=== PATIENT | female | born 1990 | race Caucasian/White ===

== ENCOUNTER 2016-12-27 22:51 | Emergency (ER) | payer MEDICAID ==
[2016-12-27 23:06] VITALS: RESP 16; TEMP 99.3; BMI 41.3
[2016-12-27] MEDS ORDERED: Sodium Chloride 0.9% 1,000 ML IV STA (23:34)
--- NOTE | 2016-12-27 23:41 | ED PDOC ---
Arrival/HPI - General Chief Complaint: ENT Problem Time Seen by Provider: 12/27/16 23:09 Historian: Patient - History of Present Illness Narrative History of Present Illness (Text): 12/27/16 23:33 26yo morbidly obese female present with complaint of sore throat, chills, and "popping" ears x 2days. Notes tactile fever. Did not take any medication. Denies dysphagia, neck pain, abdominal pain, vomiting, chest pain, SOB, any other complaint. Past Medical History - Provider Review Nursing Documentation Reviewed: Yes - Psychiatric Hx Substance Use: No Family/Social History - Physician Review Nursing Documentation Reviewed: Yes Family/Social History: Unknown Family HX Smoking Status: Never Smoked Hx Alcohol Use: Yes Frequency of alcohol use: Socially Hx Substance Use: No Allergies/Home Meds Allergies/Adverse Reactions: Allergies strawberry Allergy (Verified 12/27/16 23:05) RASH Review of Systems - Physician Review All systems were reviewed & negative as marked: Yes - Review of Systems Constitutional: Fevers Eyes: Normal ENT: Sore Throat Respiratory: Normal Cardiovascular: Normal Gastrointestinal: Normal Genitourinary Female: Normal Musculoskeletal: Normal Skin: Normal Neurological: Normal Endocrine: Normal Hemo/Lymphatic: Normal Psychiatric: Normal Physical Exam Vital Signs Reviewed: Yes Vital Signs Temp Pulse Resp BP Pulse Ox 12/28/16 01:28 111 H 136/90 97 12/27/16 23:05 99.3 F 122 H 16 128/87 99 Temperature: Afebrile Blood Pressure: Normal Pulse: Tachycardic Respiratory Rate: Normal Appearance: Positive for: Well-Appearing, Non-Toxic, Comfortable Pain Distress: None Mental Status: Positive for: Alert and Oriented X 3 - Systems Exam Head: Present: Atraumatic, Normocephalic Pupils: Present: PERRL Extroacular Muscles: Present: EOMI Conjunctiva: Present: Normal Mouth: Present: Moist Mucous Membranes Pharnyx: Present: ERYTHEMA, TONSILS ENLARGED. No: EXUDATE, Peritonsilar Swelling, Uvular Deviation, Muffled/Hoarse Voice, Strider, Soft Palate/Uvular Edema Neck: Present: Normal Range of Motion Respiratory/Chest: Present: Clear to Auscultation, Good Air Exchange. No: Respiratory Distress, Accessory Muscle Use Cardiovascular: Present: Regular Rate and Rhythm, Normal S1, S2. No: Murmurs Abdomen: Present: Normal Bowel Sounds. No: Tenderness, Distention, Peritoneal Signs Back: Present: Normal Inspection Upper Extremity: Present: Normal Inspection. No: Cyanosis, Edema Lower Extremity: Present: Normal Inspection. No: Edema Neurological: Present: GCS=15, CN II-XII Intact, Speech Normal Skin: Present: Warm, Dry, Normal Color. No: Rashes Psychiatric: Present: Alert, Oriented x 3, Normal Insight, Normal Concentration Medical Decision Making ED Course and Treatment: 12/28/16 01:36 Pt's pain and HR improved in ED on re evaluation. she will be DC home with a rx of Penicillin for pharyngitis. Leukocytosis was noted which is secondary to the pharyngitis. she was DC home and referred to her PMD. TRT ED for any new or worsening symptoms. - Lab Interpretations Lab Results: 12/27/16 23:50 12/27/16 23:50 Lab Results 12/27/16 23:50: Sodium 139, Potassium 4.3, Chloride 101, Carbon Dioxide 30, Anion Gap 12, BUN 9, Creatinine 0.9, Est GFR ( Amer) > 60, Est GFR (Non- Af Amer) > 60, Random Glucose 98, Calcium 9.8, Total Bilirubin 0.9, AST 47 H, ALT 54, Alkaline Phosphatase 77, Total Protein 8.3, Albumin 4.5, Globulin 3.8, Albumin/Globulin Ratio 1.2 12/27/16 23:50: WBC 19.1 H, RBC 5.72, Hgb 16.1 H, Hct 45.8, MCV 80.1, MCH 28.1, MCHC 35.2, RDW 13.5, Plt Count 288, MPV 9.6, Gran % 71.6 H, Lymph % (Auto) 20.1 L, Gilchrist % (Auto) 5.2, Eos % (Auto) 2.8, Baso % (Auto) 0.3, Gran # 13.62 H, Lymph # 3.8 H, Gilchrist # 1.0 H, Eos # 0.5, Baso # 0.06 - Medication Orders Current Medication Orders: Discontinued Medications Dexamethasone (Decadron Inj) 10 mg IVP STAT STA Stop: 12/27/16 23:35 Last Admin: 12/27/16 23:39 Dose: 10 mg Sodium Chloride (Sodium Chloride 0.9%) 1,000 mls @ 999 mls/hr IV .Q1H1M STA Stop: 12/28/16 00:34 Last Admin: 12/27/16 23:56 Dose: 999 mls/hr Lidocaine HCl (Lidocaine 2% Viscous) 15 ml PO ONCE STA Stop: 12/27/16 23:15 Last Admin: 12/27/16 23:38 Dose: 15 ml Penicillin V Potassium (Penicillin Vk Tab) 500 mg PO STAT STA PRN Reason: Protocol Stop: 12/27/16 23:15 Last Admin: 12/27/16 23:38 Dose: 500 mg Disposition/Present on Arrival - Present on Arrival Any Indicators Present on Arrival: No History of DVT/PE: No History of Uncontrolled Diabetes: No Urinary Catheter: No History of Decub. Ulcer: No History Surgical Site Infection Following: None - Disposition Have Diagnosis and Disposition been Completed?: Yes Diagnosis: Acute pharyngitis Disposition: HOME/ ROUTINE Disposition Time: 01:15 Patient Plan: Discharge Condition: STABLE Discharge Instructions (ExitCare): Pharyngitis (ED) Additional Instructions: Follow up with your doctor Return to ED for any new or worsening symptoms Prescriptions: Penicillin VK [Pen-Vee K] 500 mg PO BID #14 tab Referrals: [facility] at [facility] [place] [Outside] - Follow up with primary
[2016-12-27 23:57] LABS: ADD MANUAL DIFF? NO
[2016-12-28 00:03] LABS: BASO # 0.06 K/mm3 (0.0-2.0); BASO % 0.3 % (0.0-3.0); EOS # 0.5 (0.0-0.7); EOS % 2.8 % (1.5-5.0); GRAN # 13.62 (1.4-6.5); GRAN % 71.6 % (50.0-68.0); HEMATOCRIT 45.8 % (36.0-48.0); LYMPH # 3.8 (1.2-3.4); LYMPH % 20.1 % (22.0-35.0); MEAN CELL VOLUME 80.1 fL (80.0-105.0); MEAN CORPUSCULAR HEMOGLOBIN 28.1 pg (25.0-35.0); MEAN CORPUSCULAR HGB CONC 35.2 g/dl (31.0-37.0); MEAN PLATELET VOLUME 9.6 fl (7.0-11.0); MONO % 5.2 % (1.0-6.0); PLATELET COUNT 288 10^3/uL (120.0-450.0); RED CELL DISTRIBUTION WIDTH 13.5 % (11.5-14.5); WHITE BLOOD COUNT 19.1 10^3/ul (4.5-11.0)
[2016-12-28 00:18] LABS: ALB/GLOB RATIO 1.2 (1.1-1.8); ALKALINE PHOSPHATASE 77 U/L (38-133); ALT/SGPT 54 U/L (7-56); AST/SGOT 47 U/L (15-39); BILIRUBIN,TOTAL 0.9 mg/dL (0.2-1.3); BLOOD UREA NITROGEN 9 mg/dL (7-21); CALCIUM 9.8 mg/dL (8.4-10.5); CARBON DIOXIDE 30 mmol/L (21-33); CHLORIDE 101 mmol/L (98-107); GFR AFRICAN-AMERICAN > 60; GLUCOSE,RANDOM 98 mg/dL (70-110); POTASSIUM 4.3 mmol/L (3.6-5.0); SODIUM 139 mmol/L (132-148); TOTAL PROTEIN 8.3 g/dL (5.8-8.3)
[2016-12-28 01:29] VITALS: BP 136/90; PULSE 111; O2SAT 97
--- NOTE | 2016-12-29 01:43 | CARD ---
APPROVED REPORT EKG Measurement Heart [id number] <Conclusion> Sinus tachycardia Otherwise normal ECG
== END 2016-12-28 01:47 | disposition home or self-care (01) ==
LOC: ED 22:51 → MERGE 22:51 → ED 12-28 01:47
DX: J02.9 Acute pharyngitis, unspecified (principal); E66.01 Morbid (severe) obesity due to excess calories
CPT/HCPCS: 80053; 85025; 93005; 96361; 96374; 99284; J1100; J7040